=== PATIENT | female | born 1960 | race Hispanic/Latino ===

== ENCOUNTER 2020-04-17 15:34 | Inpatient (IN) | payer BC ==
[~2020-04-17] VITALS: Ht 154.9 cm; Wt 74.5 kg
[~2020-04-17 15:34] MED LIST: AMIT100T2 PO; HYOS-28 PO; METO100T14 PO; PANT40TA54 PO; SIMV-43 PO; TRIA1TAB3 PO
[2020-04-17 16:07] LABS: BASOPHILS % (AUTO) 0.5 % (0.0-5.0); EOSINOPHILS % (AUTO) 0.4 % (0.0-8.0); HEMATOCRIT 43.1 % (36-48); LYMPHOCYTES % (AUTO) 21.7 % (21.0-51.0); MEAN CORPUSCULAR HEMOGLOBIN 29.6 pg (27.0-33.0); MEAN CORPUSCULAR HGB CONC 33.4 g/dL (32.0-36.0); MEAN CORPUSCULAR VOLUME 88.5 fL (79-99); MONOCYTES % (AUTO) 6.8 % (3.0-13.0); NEUTROPHILS % (AUTO) 70.4 % (40.0-77.0); PLATELET COUNT (AUTO) 271 K/uL (130-400); RED BLOOD CELL COUNT(AUTO) 4.87 MIL/uL (4.00-5.50); RED CELL DISTRIBUTION WIDTH 13.2 % (11.0-15.5); WHITE BLOOD COUNT (AUTO) 8.4 K/uL (4.8-10.8)
[2020-04-17] MEDS ORDERED: 0.9%NACL 1000ML 1,000 ML IV ONE (16:11)
[2020-04-17] MEDS ORDERED: ONDANSETRON 4MG INJ ONE (16:11)
[2020-04-17] MEDS ORDERED: MORPHINE 4 MG SYG ONE (16:11)
[2020-04-17] MEDS ORDERED: ASPIRIN 325 MG TABLET ONE (16:12)
[2020-04-17 16:22] LABS: CREATININE 0.8 mg/dL (0.5-1.5); POTASSIUM 3.4 mmol/L (3.5-5.1)
[2020-04-17 16:26] LABS: ALBUMIN 4.3 g/dL (3.5-5.0); BILIRUBIN,TOTAL 0.4 mg/dL (0.2-1.0); TOTAL PROTEIN, SERUM 7.7 g/dL (6.0-8.3)
[2020-04-17 16:32] LABS: B-TYPE NATRIURETIC PEPTIDE < 5 pg/mL (0-100)
[2020-04-17] MEDS ORDERED: CEFTRIAXONE 1G VIAL ONE (17:09)
[2020-04-17] MEDS ORDERED: ACETAMINOPHEN 325 MG TAB ONE (17:09)
[2020-04-17] MEDS ORDERED: AZITHROMYCIN 500MG+NS 250ML 250 ML IV ONE (17:09)
[2020-04-17 17:42] LABS: INR 0.99 (0.85-1.15); PROTHROMBIN TIME 10.8 SEC (9.6-11.6)
[2020-04-17 17:43] LABS: PARTIAL THROMBOPLASTIN TIME 27.6 SEC (26.3-35.5)
[2020-04-17 19:27] LABS: APPEARANCE,URINE Clear (CLEAR); BILIRUBIN,URINE Negative (NEGATIVE); COLOR,URINE Yellow (YELLOW); GLUCOSE, URINE (UA) Negative (NEGATIVE); KETONES,URINE Negative (NEGATIVE); LEUKOCYTE ESTERASE ,URINE Negative (NEGATIVE); NITRATE,URINE Negative (NEGATIVE); OCCULT BLOOD,URINE Negative (NEGATIVE); PH,URINE 6.5 (5.0-8.0); PROTEIN,URINE Negative (NEGATIVE); UROBILINOGEN,URINE 0.2 mg/dL (0.2-1.0)
[2020-04-17] MEDS ORDERED: NITROGLYCERIN 1GM OINT 1 INCH/1GM TD ONE (21:24)
[2020-04-17] MEDS: METOPROLOL TARTRATE 25 MG TAB PO SCH (23:00)
[2020-04-17] MEDS ORDERED: ACETAMINOPHEN 325 MG TAB PO PRN ×2 (23:00)
[2020-04-17] MEDS ORDERED: ONDANSETRON 4MG INJ IV PRN (23:00)
[2020-04-17] MEDS: DOXYCYCLINE 100MG+NS 250ML 250 ML IV SCH (23:00)
[2020-04-17] MEDS: CEFTRIAXONE 1G VIAL IV SCH (23:00)
[2020-04-18] MEDS ORDERED: DOXYCYCLINE 100MG+NS 250ML 250 ML IV ONE (00:04)
[2020-04-18 00:33] VITALS: BP 147/86
[2020-04-18] MEDS ORDERED: DULOXETINE HCL 30 MG CAP ONE (02:18)
[2020-04-18] MEDS ORDERED: HYDROCODONE/ACETAMINOPHEN 10/325 MG TAB ONE (02:21)
[2020-04-18] MEDS: DULOXETINE HCL 30 MG CAP PO SCH ×2 (02:23→09:00)
[2020-04-18 04:29] VITALS: BP 136/89
[2020-04-18 06:01] LABS: BASOPHILS % (AUTO) 0.7 % (0.0-5.0); EOSINOPHILS % (AUTO) 1.4 % (0.0-8.0); HEMATOCRIT 37.3 % (36-48); MEAN CORPUSCULAR HGB CONC 33.2 g/dL (32.0-36.0); MEAN CORPUSCULAR VOLUME 90.1 fL (79-99); MONOCYTES % (AUTO) 7.3 % (3.0-13.0); NEUTROPHILS % (AUTO) 62.5 % (40.0-77.0); PLATELET COUNT (AUTO) 239 K/uL (130-400); RED BLOOD CELL COUNT(AUTO) 4.14 MIL/uL (4.00-5.50); RED CELL DISTRIBUTION WIDTH 13.3 % (11.0-15.5); WHITE BLOOD COUNT (AUTO) 8.4 K/uL (4.8-10.8)
[2020-04-18 06:05] LABS: CREATININE 0.7 mg/dL (0.5-1.5); POTASSIUM 3.5 mmol/L (3.5-5.1)
[2020-04-18 08:00] VITALS: BP 141/93
[2020-04-18] MEDS: ASPIRIN 325MG EC TAB PO SCH (08:15)
[2020-04-18] MEDS: FAMOTIDINE 20MG TAB PO SCH ×2 (08:15→20:13)
[2020-04-18] MEDS: HYDROCODONE/ACETAMINOPHEN 5/325 MG TAB PO PRN ×2 (08:16→20:14)
[2020-04-18] MEDS: METOPROLOL TARTRATE 25 MG TAB PO SCH ×2 (08:16→20:13)
[2020-04-18] MEDS: ENOXAPARIN SODIUM 40 MG/0.4 ML SYRINGE SQ SCH (08:23)
[2020-04-18] MEDS ORDERED: ENOXAPARIN SODIUM 40 MG/0.4 ML SYRINGE SQ SCH (09:00)
[2020-04-18 11:20] VITALS: BP 139/81
[2020-04-18] MEDS: DOXYCYCLINE 100MG+NS 250ML 250 ML IV SCH ×2 (11:54→22:15)
[2020-04-18] MEDS ORDERED: PROG100C11 PO (15:16)
[2020-04-18 16:00] VITALS: BP 144/84
[2020-04-18 20:00] VITALS: BP 143/77
[2020-04-18] MEDS ORDERED: ATORVASTATIN 40 MG TABLET PO SCH (21:00)
[2020-04-18] MEDS: CEFTRIAXONE 1G VIAL IV SCH (22:15)
[2020-04-19] VITALS: BP 129/75
[2020-04-19 04:00] VITALS: BP 149/73
[2020-04-19 06:43] LABS: BASOPHILS % (AUTO) 1.1 % (0.0-5.0); EOSINOPHILS % (AUTO) 2.1 % (0.0-8.0); HEMATOCRIT 39.4 % (36-48); LYMPHOCYTES % (AUTO) 35.3 % (21.0-51.0); MEAN CORPUSCULAR VOLUME 88.1 fL (79-99); MONOCYTES % (AUTO) 8.1 % (3.0-13.0); NEUTROPHILS % (AUTO) 53.1 % (40.0-77.0); PLATELET COUNT (AUTO) 249 K/uL (130-400); RED BLOOD CELL COUNT(AUTO) 4.47 MIL/uL (4.00-5.50); RED CELL DISTRIBUTION WIDTH 13.1 % (11.0-15.5); WHITE BLOOD COUNT (AUTO) 6.6 K/uL (4.8-10.8)
[2020-04-19 06:52] LABS: CREATININE 0.8 mg/dL (0.5-1.5); POTASSIUM 3.5 mmol/L (3.5-5.1)
[2020-04-19 07:28] VITALS: BP 147/78
[2020-04-19] MEDS: METOPROLOL TARTRATE 25 MG TAB PO SCH (08:12)
[2020-04-19] MEDS: FAMOTIDINE 20MG TAB PO SCH (08:12)
[2020-04-19] MEDS: DULOXETINE HCL 30 MG CAP PO SCH (08:14)
[2020-04-19] MEDS: ASPIRIN 325MG EC TAB PO SCH (08:15)
[2020-04-19] MEDS: ENOXAPARIN SODIUM 40 MG/0.4 ML SYRINGE SQ SCH (08:16)
[2020-04-19] MEDS: HYDROCODONE/ACETAMINOPHEN 5/325 MG TAB PO PRN (08:18)
[2020-04-19 11:30] VITALS: BP 137/96
[2020-04-19] MEDS ORDERED: METO25TA6 PO (12:14)
[2020-04-19] MEDS ORDERED: CEPH500B PO (12:14)
[2020-04-19] MEDS ORDERED: DOXY100C5 PO (12:14)
== END 2020-04-19 13:55 | disposition home or self-care (01) | DRG 195 ==
LOC: EDH 15:34 → OBSVTOIN 23:00 → EDHIP 23:00 → 2AH 04-18 00:15
PROVIDERS: ADMIT Internal Medicine; ATTEND Internal Medicine
DX: J18.9 Pneumonia, unspecified organism (principal); R00.0 Tachycardia, unspecified; G89.4 Chronic pain syndrome; M79.7 Fibromyalgia; K21.9 Gastro-esophageal reflux disease without esophagitis; Z20.822 Contact with and (suspected) exposure to COVID-19; Z88.5 Allergy status to narcotic agent; Z90.710 Acquired absence of both cervix and uterus; Z90.49 Acquired absence of other specified parts of digestive tract
CPT/HCPCS: 36415; 71045; 80048; 80053; 81003; 82550; 83605; 83880; 84145; 84484; 85025; 85378; 85610; 85730; 86738; 87040; 87177; 87426; 87449; 87493; 87798; 87804; 87880; 93005; G0378; J0456; J0696; J1650; J2270; J2405; J3490; J7030; U0003